=== PATIENT | male | born 1955 | race Caucasian/White ===

== ENCOUNTER 2018-01-30 13:41 | Outpatient (CLI) | payer BC | END 2018-01-30 13:42 | disposition home or self-care (01) | LOC: BICMRI 13:41 | PROVIDERS: ATTEND Specialist | DX: M99.81 Other biomechanical lesions of cervical region (principal) | CPT/HCPCS: 72141 ==

== ENCOUNTER 2018-03-11 15:08 | Outpatient (CLI) | payer BC ==
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
== END 2018-03-11 15:09 | disposition home or self-care (01) ==
LOC: TBSIIMAG 15:08
PROVIDERS: ATTEND Neurological Surgery
DX: M50.20 Other cervical disc displacement, unspecified cervical region (principal); M47.892 Other spondylosis, cervical region
CPT/HCPCS: 72050

== ENCOUNTER 2018-04-25 09:23 | Outpatient (CLI) | payer BC | END 2018-04-25 09:24 | disposition home or self-care (01) | LOC: BICULT 09:23 | PROVIDERS: ATTEND Internal Medicine Gastroenterology | DX: R94.5 Abnormal results of liver function studies (principal); Z86.19 Personal history of other infectious and parasitic diseases | CPT/HCPCS: 76705 ==

== ENCOUNTER 2021-06-01 07:16 | Day surgery (SDC) | payer BC ==
[2021-06-01] MEDS ORDERED: Phenylephrine 10 MG/ML VIAL ONE (09:24)
[2021-06-01] MEDS ORDERED: Fentanyl 100 MCG/2 ML VIAL ONE (09:24)
[2021-06-01] MEDS ORDERED: Glycopyrrolate 0.2 MG/ML 5 ML SYRINGE ONE (09:32)
[2021-06-01] MEDS ORDERED: Lidocaine 1% PF 5 ML VIAL ONE (09:32)
[2021-06-01] MEDS ORDERED: PROPOFOL 200 MG/20 ML VIAL ONE (09:32)
[2021-06-01] MEDS ORDERED: Ondansetron PF 4 MG/2 ML Vial ONE (09:32)
[2021-06-01] MEDS ORDERED: EPINEPHrine 1 MG/ML AMP ONE (09:52)
[2021-06-01] MEDS ORDERED: Bupivacaine PF 0.5% 30 ML VIAL ONE (09:52)
== END 2021-06-01 12:45 | disposition home or self-care (01) ==
LOC: SDC 07:16
PROVIDERS: ATTEND Thoracic Surgery (Cardiothoracic Vascular Surgery)
PROC: 0WBC4ZX Excision of Mediastinum, Percutaneous Endoscopic Approach, Diagnostic (ICD-10-PCS; principal; 2021-06-01)
DX: C34.90 Malignant neoplasm of unspecified part of unspecified bronchus or lung (principal); C77.1 Secondary and unspecified malignant neoplasm of intrathoracic lymph nodes; C79.31 Secondary malignant neoplasm of brain; F10.10 Alcohol abuse, uncomplicated; F17.200 Nicotine dependence, unspecified, uncomplicated
CPT/HCPCS: 81210; 81235; 81479; 88305; 88307; 88331; 88341; 88342; 88374; 88377; J0171; J0690; J2370; J2405; J2704; J3010; S0020

== ENCOUNTER 2021-06-14 10:07 | Outpatient (CLI) | payer BC | END 2021-06-14 10:08 | disposition home or self-care (01) | LOC: PET 10:07 | PROVIDERS: ATTEND Internal Medicine Hematology & Oncology | DX: C34.01 Malignant neoplasm of right main bronchus (principal); R91.8 Other nonspecific abnormal finding of lung field; C77.1 Secondary and unspecified malignant neoplasm of intrathoracic lymph nodes | CPT/HCPCS: 78815; A9552 ==

== ENCOUNTER 2021-07-14 12:28 | Outpatient (CLI) | payer BC | END 2021-07-14 12:29 | disposition home or self-care (01) | LOC: BICRAD 12:28 | PROVIDERS: ATTEND Internal Medicine Hematology & Oncology | DX: C34.01 Malignant neoplasm of right main bronchus (principal); R06.02 Shortness of breath; R91.8 Other nonspecific abnormal finding of lung field | CPT/HCPCS: 71046 ==

== ENCOUNTER 2021-09-06 07:33 | Outpatient (CLI) | payer BC | END 2021-09-06 07:34 | disposition home or self-care (01) | LOC: PET 07:33 | PROVIDERS: ATTEND Internal Medicine Hematology & Oncology | DX: C34.90 Malignant neoplasm of unspecified part of unspecified bronchus or lung (principal); C79.31 Secondary malignant neoplasm of brain | CPT/HCPCS: 78815; A9552 ==

== ENCOUNTER 2021-09-27 11:46 | Outpatient (CLI) | payer BC ==
[~2021-09-27 11:46] MED LIST: Magnevist 469MG/ML 20 ML VIAL ONE
== END 2021-09-27 11:47 | disposition home or self-care (01) ==
LOC: MRI 11:46
PROVIDERS: ATTEND Radiology Radiation Oncology
DX: C79.31 Secondary malignant neoplasm of brain (principal)
CPT/HCPCS: 70553

== ENCOUNTER 2022-03-29 09:25 | Outpatient (CLI) | payer BC ==
[~2022-03-29 09:25] MED LIST changes: +Gadobenate Dimeglumine 529 MG/1 ML (20ML VIAL) ONE; -Magnevist 469MG/ML 20 ML VIAL ONE
== END 2022-03-29 09:26 | disposition home or self-care (01) ==
LOC: PET 09:25
PROVIDERS: ATTEND Internal Medicine Hematology & Oncology
DX: C34.01 Malignant neoplasm of right main bronchus (principal); C79.31 Secondary malignant neoplasm of brain
CPT/HCPCS: 70553; 78815; A9552; A9577

== ENCOUNTER 2022-06-23 08:45 | Outpatient (CLI) | payer BC | END 2022-06-23 08:46 | disposition home or self-care (01) | LOC: PET 08:45 | PROVIDERS: ATTEND Internal Medicine Hematology & Oncology | DX: C34.01 Malignant neoplasm of right main bronchus (principal); C79.31 Secondary malignant neoplasm of brain | CPT/HCPCS: 78815; A9552 ==

== ENCOUNTER 2022-07-03 08:28 | Outpatient (CLI) | payer BC ==
[2022-07-03] MEDS ORDERED: Magnevist 469MG/ML 20 ML VIAL ONE (11:19)
== END 2022-07-03 08:29 | disposition home or self-care (01) ==
LOC: TBSIIMAG 08:28
PROVIDERS: ATTEND Radiology Radiation Oncology
DX: C79.31 Secondary malignant neoplasm of brain (principal); Z92.3 Personal history of irradiation
CPT/HCPCS: 70553; A9579

== ENCOUNTER 2022-09-15 08:45 | Outpatient (CLI) | payer MEDICARE, BC | END 2022-09-15 08:46 | disposition home or self-care (01) | LOC: PET 08:45 | PROVIDERS: ATTEND Internal Medicine Hematology & Oncology | DX: C34.01 Malignant neoplasm of right main bronchus (principal); C79.31 Secondary malignant neoplasm of brain | CPT/HCPCS: 78815; A9552 ==

== ENCOUNTER 2022-09-27 08:20 | Outpatient (CLI) | payer MEDICARE, BC | END 2022-09-27 08:21 | disposition home or self-care (01) | LOC: TBSIIMAG 08:20 | PROVIDERS: ATTEND Radiology Radiation Oncology | DX: C79.31 Secondary malignant neoplasm of brain (principal) | CPT/HCPCS: 70553 ==

== ENCOUNTER 2023-01-17 13:33 | Outpatient (CLI) | payer MEDICARE, BC ==
[~2023-01-17 13:33] MED LIST changes: -Gadobenate Dimeglumine 529 MG/1 ML (20ML VIAL) ONE; +Magnevist 469MG/ML 20 ML VIAL ONE
== END 2023-01-17 13:34 | disposition home or self-care (01) ==
LOC: MRI 13:33
PROVIDERS: ATTEND Radiology Radiation Oncology
DX: C79.31 Secondary malignant neoplasm of brain (principal); R90.82 White matter disease, unspecified
CPT/HCPCS: 70553

== ENCOUNTER 2023-02-02 08:45 | Outpatient (CLI) | payer MEDICARE, BC | END 2023-02-02 08:46 | disposition home or self-care (01) | LOC: PET 08:45 | PROVIDERS: ATTEND Internal Medicine Hematology & Oncology | DX: C34.01 Malignant neoplasm of right main bronchus (principal); C79.31 Secondary malignant neoplasm of brain; G93.89 Other specified disorders of brain | CPT/HCPCS: 78815; A9552 ==

== ENCOUNTER 2023-05-28 09:54 | Outpatient (CLI) | payer MEDICARE ==
[2023-05-28] MEDS ORDERED: Magnevist 469MG/ML 20 ML VIAL ONE (11:29)
== END 2023-05-28 09:55 | disposition home or self-care (01) ==
LOC: MRI 09:54
PROVIDERS: ATTEND Radiology Radiation Oncology
DX: C34.90 Malignant neoplasm of unspecified part of unspecified bronchus or lung (principal); C79.31 Secondary malignant neoplasm of brain; R90.82 White matter disease, unspecified
CPT/HCPCS: 70553; A9579

== ENCOUNTER 2023-06-01 08:45 | Outpatient (CLI) | payer MEDICARE | END 2023-06-01 08:46 | LOC: PET 08:45 | PROVIDERS: ATTEND Internal Medicine Hematology & Oncology | DX: C34.01 Malignant neoplasm of right main bronchus (principal); C79.31 Secondary malignant neoplasm of brain | CPT/HCPCS: 78815; A9552 ==

== ENCOUNTER 2023-07-18 09:17 | Outpatient (CLI) | payer MEDICARE | END 2023-07-18 09:18 | disposition home or self-care (01) | LOC: MRI 09:17 | PROVIDERS: ATTEND Specialist | DX: M47.26 Other spondylosis with radiculopathy, lumbar region (principal); M51.16 Intervertebral disc disorders with radiculopathy, lumbar region; M48.061 Spinal stenosis, lumbar region without neurogenic claudication; M48.07 Spinal stenosis, lumbosacral region; M51.37 Other intervertebral disc degeneration, lumbosacral region; M89.38 Hypertrophy of bone, other site | CPT/HCPCS: 72148 ==

== ENCOUNTER 2023-08-20 08:32 | Outpatient (CLI) | payer MEDICARE ==
[2023-08-20] MEDS ORDERED: Magnevist 469MG/ML 20 ML VIAL ONE (09:30)
== END 2023-08-20 08:33 | disposition home or self-care (01) ==
LOC: MRI 08:32
PROVIDERS: ATTEND Radiology Radiation Oncology
DX: C79.31 Secondary malignant neoplasm of brain (principal); I63.9 Cerebral infarction, unspecified
CPT/HCPCS: 70553

== ENCOUNTER 2023-09-21 08:00 | Outpatient (CLI) | payer MEDICARE | END 2023-09-21 08:01 | disposition home or self-care (01) | LOC: PET 08:00 | PROVIDERS: ATTEND Internal Medicine Hematology & Oncology | DX: C34.90 Malignant neoplasm of unspecified part of unspecified bronchus or lung (principal); C78.7 Secondary malignant neoplasm of liver and intrahepatic bile duct; C77.2 Secondary and unspecified malignant neoplasm of intra-abdominal lymph nodes | CPT/HCPCS: 78815; A9552 ==

== ENCOUNTER 2023-11-12 17:57 | Emergency (ER) | payer MEDICARE ==
[2023-11-12 19:14] LABS: #Monocytes 0.3 thou/uL (0.11-0.59); #Neutrophils 8.2 thou/uL (1.40-6.50); %Basophils 0.1 % (0.0-1.0); %Lymphocytes 10.9 % (21.0-51.0); %Monocytes 2.8 % (0.0-10.0); %Neutrophils 85.1 % (42.0-75.0); Hematocrit 31.1 % (42.0-52.0); Hemoglobin 10.6 g/dL (14.0-18.0); Mean Corpuscular HGB CONC 34.1 g/dL (32.0-36.0); Mean Corpuscular Hemoglobin 30.5 pg (27.0-31.0); Mean Corpuscular Volume 89.4 fl (78.0-98.0); Platelet Count 306 10x3/uL (130-400); RBC Distribution Width 13.1 % (11.5-14.5); Red Blood Cell (RBC) Count 3.48 mill/uL (4.70-6.10); White Blood Cell (WBC) Count 9.6 10x3/uL (4.8-10.8)
[2023-11-12 19:26] LABS: INR-International Normal Ratio 1.1; PTT 27.3 sec (22.9-36.1); Prothrombin Time 14.6 sec (12.0-14.7)
[2023-11-12 19:41] LABS: ALT (SGPT) 36 U/L (8-55); AST (SGOT) 19 U/L (5-34); Albumin 3.8 g/dL (3.4-4.8); Alkaline Phosphatase 53 U/L (40-110); Anion Gap 12 mmol/L (10-20); BUN (Urea Nitrogen) 17 mg/dL (8.4-25.7); Bilirubin, Total 0.3 mg/dL (0.2-1.2); CK (CPK) 45 U/L (30-200); Calc. Creatinine Clearance 0 mL/min (70-130); Calcium 8.9 mg/dL (7.8-10.44); Carbon Dioxide 24 mmol/L (23-31); Chloride 102 mmol/L (98-107); Estimated GFR 99; Globulin 2.6 g/dL (2.4-3.5); Glucose 134 mg/dL (80-115); Lipase 16 U/L (8-78); Magnesium 2.4 mg/dL (1.6-2.6); Protein, Total 6.4 g/dL (5.8-8.1); Sodium 134 mmol/L (136-145)
[2023-11-12 19:45] LABS: Troponin I Less than 0.010 ng/mL (< 0.028)
[2023-11-12 20:36] LABS: Bacteria/HPF None Seen HPF (None Seen); Bilirubin Negative (Negative); Blood, Urine Negative (Negative); CAUTI Indications for Culture Alt mental st,lethar; Clarity Clear (Clear); Glucose, Urine (Dipstick) Normal (Negative); Ketone, Urine Negative (Negative); Leukocyte Negative Leu/uL (Negative); Mucous/LPF Rare LPF (<2+); Nitrite Negative (Negative); Protein, Urine (Dipstick) 20 mg/dL (Neg-Trace); RBC/HPF 0-3 HPF (0-3); Squamous Epithelial None Seen HPF (0-3); Urobilinogen Normal mg/dL (Less than 2); WBC/HPF 0-3 HPF (0-3); pH, Urine 6.5 (5.0-9.0)
[2023-11-12 20:39] LABS: Urine Culture Reflex No No
[2023-11-12 21:22] LABS: SARS-CoV-2 NAA Rapid Test Not Detected (NotDetected)
== END 2023-11-12 21:35 | disposition home or self-care (01) ==
LOC: ERS 17:57
DX: B34.9 Viral infection, unspecified (principal); E86.0 Dehydration; F17.210 Nicotine dependence, cigarettes, uncomplicated
CPT/HCPCS: 0240U; 70450; 71045; 80053; 81001; 82550; 83605; 83690; 83735; 84484; 85025; 85610; 85730; 87040; 87086; 93005; 94760; 96360

== ENCOUNTER 2023-11-20 08:00 | Outpatient (CLI) | payer MEDICARE | END 2023-11-20 08:01 | LOC: PET 08:00 | PROVIDERS: ATTEND Internal Medicine Hematology & Oncology | DX: C34.01 Malignant neoplasm of right main bronchus (principal); C79.31 Secondary malignant neoplasm of brain; R59.0 Localized enlarged lymph nodes; R91.8 Other nonspecific abnormal finding of lung field | CPT/HCPCS: 78815; A9552 ==

== ENCOUNTER 2023-12-20 | Inpatient (IN) | payer MEDICARE | END 2023-12-24 17:35 | DRG 65 | PROVIDERS: ADMIT Internal Medicine | DX: I63.9 Cerebral infarction, unspecified (principal); C34.90 Malignant neoplasm of unspecified part of unspecified bronchus or lung; I69.354 Hemiplegia and hemiparesis following cerebral infarction affecting left non-dominant side; D64.9 Anemia, unspecified; Z79.82 Long term (current) use of aspirin; Z79.899 Other long term (current) drug therapy; R13.12 Dysphagia, oropharyngeal phase ==

== ENCOUNTER 2024-02-10 10:19 | Inpatient (IN) | payer MEDICARE ==
[2024-02-10] MEDS ORDERED: NOREPINEPHRINE 8 MG/250 ML-D5W 250 ML ONE (10:27)
[2024-02-10] MEDS ORDERED: Sodium Bicarb 50 mEq/50 ML VIAL ONE (10:36)
[2024-02-10] MEDS ORDERED: Sodium Chloride 0.9% 100 ML ONE (10:41)
[2024-02-10] MEDS ORDERED: Cefepime 2 GM VIAL ONE (10:41)
[2024-02-10] MEDS ORDERED: Vancomycin 1 GM/200 ML (FROZEN) BAG ONE (10:48)
[2024-02-10 10:49] LABS: Actual Bicarbonate (HCO3a) 17.5 mEq/L (22-28); Analyzer IN Cardio ER; Base Excess (BEa) -9.1 mEq/L (-2.0 to +3.0); CO2 Tension 40.7 mmHg (35.0-45.0); Calcium, Ionized (arterial) 1.18 mmol/L (1.12-1.30); Carboxyhemoglobin (COHb) 0.3 gm% (0.0-3.0); Hematocrit-ABG 29 % (42.0-52.0); Hemoglobin (Hb) 9.9 g/dL (14.0-18.0); O2 Tension (PaO2), arterial 64.9 mmHg (> 80.0); Potassium - ABG Lab 3.63 mmol/L (3.70-5.30); pH, Arterial 7.252 (7.35-7.45)
[2024-02-10 10:50] LABS: #Basophils Less than 0.03 10x3/uL (0.0-0.2); %Basophils 0.2 % (0.0-1.0); %Eosinophils 0.2 % (0.0-10.0); %Lymphocytes 21.8 % (21.0-51.0); %Monocytes 5.3 % (0.0-10.0); %Neutrophils 70.4 % (42.0-75.0); Hemoglobin 8.6 g/dL (14.0-18.0); Mean Corpuscular HGB CONC 30.7 g/dL (32.0-36.0); Mean Corpuscular Hemoglobin 29.6 pg (27.0-31.0); Mean Corpuscular Volume 96.2 fL (78.0-98.0); Platelet Count 259 10x3/uL (130-400); RBC Distribution Width 14.4 % (11.5-14.5); Red Blood Cell (RBC) Count 2.91 mill/uL (4.70-6.10)
[2024-02-10 10:52] LABS: ALV-art Gradient 597.225 mmHg (0-20); Puncture Site Yes
[2024-02-10] MEDS ORDERED: Acetaminophen 650 MG Suppository ONE (10:58)
[2024-02-10 11:04] LABS: INR-International Normal Ratio 2.1; Prothrombin Time 23.4 sec (12.0-14.7)
[2024-02-10 11:06] LABS: Globulin 2.2 g/dL (2.4-3.5)
[2024-02-10 11:10] LABS: ALT (SGPT) 35 U/L (8-55); AST (SGOT) 31 U/L (5-34); Alkaline Phosphatase 44 U/L (40-110); Anion Gap 17 mmol/L (10-20); BUN (Urea Nitrogen) 35 mg/dL (8.4-25.7); Bilirubin, Total 0.4 mg/dL (0.2-1.2); Calc. Creatinine Clearance 0 mL/min (70-130); Calcium 7.5 mg/dL (7.8-10.44); Carbon Dioxide 13 mmol/L (23-31); Chloride 120 mmol/L (98-107); Estimated GFR 29; Glucose 132 mg/dL (80-115); Lipase 20 U/L (8-78); Magnesium 1.8 mg/dL (1.6-2.6); Potassium 3.5 mmol/L (3.5-5.1); Protein, Total 4.2 g/dL (5.8-8.1); Sodium 146 mmol/L (136-145)
[2024-02-10] MEDS ORDERED: Iopamidol-370 76% 500 ML MDV (1 ML CHARGE) ONE (11:40)
[2024-02-10 11:57] LABS: Critical Call Chem Troponin I NUR.RG3 @1156; Troponin I 2.027 ng/mL (< 0.028)
[2024-02-10 12:50] LABS: Bilirubin Negative (Negative); Blood, Urine Negative (Negative); CAUTI Indications for Culture Fever or rigors; Clarity Turbid (Clear); Glucose, Urine (Dipstick) Normal (Negative); Ketone, Urine Negative (Negative); Leukocyte 25 Leu/uL (Negative); Nitrite Negative (Negative); Protein, Urine (Dipstick) 70 mg/dL (Neg-Trace); RBC/HPF None Seen HPF (0-3); Specific Gravity, Urine 1.023 (1.002-1.036); Squamous Epithelial None Seen HPF (0-3); Urobilinogen 3 mg/dL (Less than 2); WBC/HPF 21-50 HPF (0-3); Yeast-Budding 2+ HPF (None Seen); pH, Urine 5.5 (5.0-9.0)
[2024-02-10 12:53] LABS: Bacteria/HPF 1+ HPF (None Seen)
[2024-02-10 12:54] LABS: Urine Culture Reflex Yes Yes
[2024-02-10] MEDS ORDERED: Heparin 25,000 units/D5W 500 ML ONE (13:27)
[2024-02-10] MEDS ORDERED: Acetaminophen 325 MG TAB PER TUBE PRN (13:30)
[2024-02-10] MEDS ORDERED: Ondansetron PF 4 MG/2 ML Vial IVP PRN (13:30)
[2024-02-10] MEDS ORDERED: Bisacodyl 10 MG SUPP PR PRN (13:30)
[2024-02-10] MEDS ORDERED: Meropenem 1 GM in Sodium Chloride 0.9% 100 ML IVPB SCH ×2 (13:30→21:30)
[2024-02-10] MEDS ORDERED: Heparin 25,000 units/D5W 500 ML IVPB SCH (13:45)
[2024-02-10] MEDS ORDERED: Propofol BOLUS 1,000 MG/100 ML VIAL IV PRN (13:45)
[2024-02-10] MEDS ORDERED: Heparin 10,000 UNITS/ 10 ML VIAL SLOW IVP SCH ×2 (13:45→17:15)
[2024-02-10] MEDS ORDERED: Fentanyl BOLUS 250 ML IVPB PRN (13:45)
[2024-02-10] MEDS ORDERED: Fentanyl CADD 100 ML IV SCH (13:45)
[2024-02-10] MEDS ORDERED: Propofol 1,000 MG/100 ML VIAL IV PRN (13:45)
[2024-02-10] MEDS ORDERED: DISCONTINUE PREVIOUS NARCOTIC PAIN MEDICATIONS AND BENZODIAZEPINES FS SCH (13:45)
[2024-02-10 14:08] LABS: Influenza A by NAA Not Detected (NotDetected); Influenza B by NAA Not Detected (NotDetected); SARS-CoV-2 NAA Rapid Test Not Detected (NotDetected)
[2024-02-10 15:49] LABS: Critical Call Chem Troponin I ICU.SW @1549; Troponin I 2.571 ng/mL (< 0.028)
[2024-02-10] MEDS: Lactated Ringer's 1,000 ML IV SCH (16:57)
[2024-02-10] MEDS ORDERED: Vancomycin Dose by Levels Sliding Scale (Wt <71) FS SCH (17:30)
[2024-02-10] MEDS: Hydrocortisone Sod Succ/PF 100 mg/2 ml Vial IVP SCH ×2 (17:33→23:29)
[2024-02-10] MEDS: Vancomycin HCl 500 MG in Sodium Chloride 0.9% 100 ML IVPB SCH (17:58)
[2024-02-10 17:59] LABS: Hematocrit 32.7 % (42.0-52.0); Hemoglobin 10.5 g/dL (14.0-18.0); Platelet Count 184 10x3/uL (130-400)
[2024-02-10 18:07] LABS: Lactic Acid 2.1 mmol/L (0.5-2.2)
[2024-02-10 18:18] LABS: PTT 133.7 sec (22.9-36.1)
[2024-02-10] MEDS: Meropenem 1 GM in Sodium Chloride 0.9% 100 ML IVPB SCH (18:42)
[2024-02-10] MEDS ORDERED: Famotidine/PF 20 mg/2ml Vial SLOW IVP SCH (21:00)
[2024-02-10] MEDS ORDERED: Vancomycin 1 GM in Sodium Chloride 0.9% 250 ML 300 ML IVPB SCH (21:00)
[2024-02-10 21:18] LABS: Hematocrit 30.7 % (42.0-52.0); Hemoglobin 9.9 g/dL (14.0-18.0); Platelet Count 171 10x3/uL (130-400)
[2024-02-10] MEDS: Heparin 25,000 units/D5W 500 ML IVPB SCH (22:31)
[2024-02-11] MEDS: Meropenem 500 MG in Sodium Chloride 0.9% 100 ML IVPB SCH (03:22)
[2024-02-11 05:13] LABS: PTT 189.2 sec (22.9-36.1)
[2024-02-11 05:24] LABS: #Basophils Less than 0.03 10x3/uL (0.0-0.2); #Eosinphils Less than 0.03 10x3/uL (0.0-0.7); %Basophils 0.1 % (0.0-1.0); %Monocytes 3.9 % (0.0-10.0); %Neutrophils 84.4 % (42.0-75.0); Hematocrit 27.8 % (42.0-52.0); Mean Corpuscular HGB CONC 32.4 g/dL (32.0-36.0); Mean Corpuscular Hemoglobin 29.3 pg (27.0-31.0); Mean Corpuscular Volume 90.6 fL (78.0-98.0); Platelet Count 154 10x3/uL (130-400); Red Blood Cell (RBC) Count 3.07 mill/uL (4.70-6.10)
[2024-02-11 05:27] VITALS: BMI 23.5
[2024-02-11 05:57] LABS: Globulin 2.7 g/dL (2.4-3.5)
[2024-02-11 05:58] LABS: Hemoglobin A1c 5.2 % (4.0-6.0)
[2024-02-11 06:05] LABS: ALT (SGPT) 40 U/L (8-55); AST (SGOT) 36 U/L (5-34); Albumin 2.1 g/dL (3.4-4.8); Alkaline Phosphatase 49 U/L (40-110); Anion Gap 14 mmol/L (10-20); BUN (Urea Nitrogen) 34 mg/dL (8.4-25.7); Bilirubin, Total 0.4 mg/dL (0.2-1.2); Calc. Creatinine Clearance 59 mL/min (70-130); Calcium 7.6 mg/dL (7.8-10.44); Carbon Dioxide 18 mmol/L (23-31); Chloride 116 mmol/L (98-107); Estimated GFR 75; Glucose 150 mg/dL (80-115); Potassium 3.2 mmol/L (3.5-5.1); Protein, Total 4.8 g/dL (5.8-8.1); Sodium 145 mmol/L (136-145)
[2024-02-11] MEDS: Pantoprazole 40 MG VIAL IVP SCH (08:23)
[2024-02-11] MEDS: NOREPINEPHRINE 8 MG/250 ML-D5W 250 ML IVPB SCH (08:23)
[2024-02-11] MEDS ORDERED: Electrolyte Replacement Protocol 1 EACH FS SCH (10:30)
[2024-02-11] MEDS ORDERED: Potassium Chloride 20 MEQ in Premix 1 BAG IVPB SCH (10:30)
[2024-02-11] MEDS ORDERED: Electrolyte Replacement Protocol FS PRN (10:45)
[2024-02-11] MEDS: Meropenem 1 GM in Sodium Chloride 0.9% 100 ML IVPB SCH (11:15)
[2024-02-11] MEDS: Potassium Chloride 20 MEQ in Premix 1 BAG IVPB SCH (11:16)
[2024-02-11] MEDS: Magnesium 2 GM/50 ML(in water) 2 GM in Premix 1 BAG IVPB SCH (11:16)
[2024-02-11 12:43] VITALS: BMI 23.5
[2024-02-11 16:56] LABS: PTT 140.1 sec (22.9-36.1)
[2024-02-11 19:47] LABS: Potassium 3.6 mmol/L (3.5-5.1)
[2024-02-11] MEDS: Lorazepam 2 MG/ML VIAL SLOW IVP PRN (19:59)
[2024-02-11 22:21] LABS: Vancomycin, Trough 8.3 ug/mL
[2024-02-12 08:20] LABS: ALT (SGPT) 39 U/L (8-55); AST (SGOT) 28 U/L (5-34); Albumin 2.1 g/dL (3.4-4.8); Alkaline Phosphatase 50 U/L (40-110); Anion Gap 11 mmol/L (10-20); BUN (Urea Nitrogen) 28 mg/dL (8.4-25.7); Bilirubin, Total 0.5 mg/dL (0.2-1.2); Calc. Creatinine Clearance 93 mL/min (70-130); Calcium 7.7 mg/dL (7.8-10.44); Carbon Dioxide 19 mmol/L (23-31); Chloride 116 mmol/L (98-107); Estimated GFR 102; Globulin 2.5 g/dL (2.4-3.5); Glucose 112 mg/dL (80-115); Magnesium 2.4 mg/dL (1.6-2.6); Potassium 3.3 mmol/L (3.5-5.1); Protein, Total 4.6 g/dL (5.8-8.1); Sodium 143 mmol/L (136-145)
[2024-02-12 09:55] LABS: #Basophils Less than 0.03 10x3/uL (0.0-0.2); #Eosinphils Less than 0.03 10x3/uL (0.0-0.7); %Lymphocytes 8.3 % (21.0-51.0); %Monocytes 3.3 % (0.0-10.0); %Neutrophils 87.9 % (42.0-75.0); Hematocrit 24.4 % (42.0-52.0); Hemoglobin 7.7 g/dL (14.0-18.0); Mean Corpuscular HGB CONC 31.6 g/dL (32.0-36.0); Mean Corpuscular Hemoglobin 28.6 pg (27.0-31.0); Mean Corpuscular Volume 90.7 fL (78.0-98.0); Mean Platelet Volume 11.9 fL (7.4-10.4); Platelet Count 88 10x3/uL (130-400); RBC Distribution Width 15.1 % (11.5-14.5); Red Blood Cell (RBC) Count 2.69 mill/uL (4.70-6.10)
[2024-02-12 10:55] VITALS: BP 99/73
[2024-02-12 11:10] VITALS: TEMP 98.9
[2024-02-12 11:31] LABS: PTT 66.9 sec (22.9-36.1)
[2024-02-12 11:43] LABS: INR-International Normal Ratio 1.5; Prothrombin Time 17.8 sec (12.0-14.7)
[2024-02-12] MEDS ORDERED: Potassium Chloride 20 MEQ in Premix 1 BAG IVPB SCH (12:00)
[2024-02-12] MEDS: Morphine 2 MG/ML VIAL SLOW IVP PRN (12:49)
[2024-02-12] MEDS: Scopolamine 1 mg/72 hour Patch TD SCH (12:49)
== END 2024-02-12 12:53 | disposition hospice, inpatient (51) | DRG 871 ==
LOC: SUATTDRO 10:19 → ERS 10:19 → CCU 13:03
PROVIDERS: ADMIT Family Medicine; ATTEND Family Medicine
PROC: 0T9B70Z Drainage of Bladder with Drainage Device, Via Natural or Artificial Opening (ICD-10-PCS; principal; 2024-02-10)
PROC: 0BH17EZ Insertion of Endotracheal Airway into Trachea, Via Natural or Artificial Opening (ICD-10-PCS; 2024-02-10)
PROC: 0D9770Z Drainage of Stomach, Pylorus with Drainage Device, Via Natural or Artificial Opening (ICD-10-PCS; 2024-02-10)
PROC: 3E0G76Z Introduction of Nutritional Substance into Upper GI, Via Natural or Artificial Opening (ICD-10-PCS; 2024-02-10)
PROC: 3E03329 Introduction of Other Anti-infective into Peripheral Vein, Percutaneous Approach (ICD-10-PCS; 2024-02-10)
PROC: 4A033R1 Measurement of Arterial Saturation, Peripheral, Percutaneous Approach (ICD-10-PCS; 2024-02-10)
PROC: 3E033XZ Introduction of Vasopressor into Peripheral Vein, Percutaneous Approach (ICD-10-PCS; 2024-02-10)
PROC: 5A1945Z Respiratory Ventilation, 24-96 Consecutive Hours (ICD-10-PCS; 2024-02-10)
DX: A41.9 Sepsis, unspecified organism (principal); G93.41 Metabolic encephalopathy; J96.01 Acute respiratory failure with hypoxia; I26.99 Other pulmonary embolism without acute cor pulmonale; J69.0 Pneumonitis due to inhalation of food and vomit; R65.21 Severe sepsis with septic shock; I21.A1 Myocardial infarction type 2; C34.90 Malignant neoplasm of unspecified part of unspecified bronchus or lung; C79.31 Secondary malignant neoplasm of brain; N17.9 Acute kidney failure, unspecified; E87.20 Acidosis, unspecified; Z66 Do not resuscitate; Z51.5 Encounter for palliative care; R79.89 Other specified abnormal findings of blood chemistry; H54.7 Unspecified visual loss; Z86.73 Personal history of transient ischemic attack (TIA), and cerebral infarction without residual deficits; Z98.890 Other specified postprocedural states; Z87.891 Personal history of nicotine dependence
CPT/HCPCS: 36415; 36556; 51702; 70470; 71045; 71275; 80053; 80202; 81001; 82533; 82805; 83036; 83605; 83690; 83735; 83880; 84443; 84484; 85025; 85610; 85730; 86850; 86900; 86901; 87040; 87086; 93005; 93306; 93970; 94002; 94003; 96365; 99292; C9113; J0692; J1644; J1720; J2060; J2185; J2272; J3010; J3370; J3370-JW; J3475; J3480; J3490; J7120; Q9967

== ENCOUNTER 2024-02-12 13:29 | Inpatient (IN) | payer MEDICARE, OTHER ==
[2024-02-12] MEDS ORDERED: Lorazepam 2 MG/ML VIAL SLOW IVP PRN (14:15)
[2024-02-12] MEDS ORDERED: Morphine 2 MG/ML VIAL SLOW IVP PRN (14:18)
[2024-02-12] MEDS: Scopolamine 1 mg/72 hour Patch TOP SCH (14:41)
[2024-02-12] MEDS: Morphine 4 MG/ML VIAL SLOW IVP SCH ×2 (14:45→14:50)
[2024-02-12] MEDS: Lorazepam 2 MG/ML VIAL SLOW IVP SCH (14:50)
[2024-02-14 03:29] VITALS: BMI 23.9
[2024-02-14 08:06] VITALS: TEMP 98.8
[2024-02-14 10:59] VITALS: BP 117/77
== END 2024-02-14 19:25 | disposition expired | DRG 951 ==
LOC: CCU 13:29 → SJJU 17:25
PROVIDERS: ADMIT Family Medicine; ATTEND Family Medicine
DX: Z51.5 Encounter for palliative care (principal); J96.01 Acute respiratory failure with hypoxia; G93.41 Metabolic encephalopathy; I26.99 Other pulmonary embolism without acute cor pulmonale; C34.90 Malignant neoplasm of unspecified part of unspecified bronchus or lung; C79.31 Secondary malignant neoplasm of brain; R77.8 Other specified abnormalities of plasma proteins; R57.9 Shock, unspecified; N17.9 Acute kidney failure, unspecified; E87.20 Acidosis, unspecified; Z86.73 Personal history of transient ischemic attack (TIA), and cerebral infarction without residual deficits; Z87.891 Personal history of nicotine dependence; Z98.890 Other specified postprocedural states
CPT/HCPCS: J2060; J2270